=== PATIENT | female | born 1955 | race African-American/Black ===

== ENCOUNTER 2020-01-12 08:34 | Inpatient (IN) | payer OTHER ==
[~2020-01-12] VITALS: Ht 160 cm; Wt 55.0 kg
[~2020-01-12 08:34] MED LIST: INSLAN SQ; TRAZ-251 PO
[2020-01-12] MEDS ORDERED: ETOMIDATE 2MG/ML 10ML VIAL IV ONE (09:00)
[2020-01-12] MEDS ORDERED: SUCCINYLCHOLINE CHLORIDE 200MG/10ML IV ONE (09:00)
[2020-01-12] MEDS ORDERED: VANCOMYCIN 1 G PREMIX 200 ML IV ONE (09:00)
[2020-01-12] MEDS ORDERED: PROPOFOL 10MG/ML 100ML 100 ML IV ONE (09:00)
[2020-01-12] MEDS ORDERED: PIPERACILLIN/TAZ 3.375G PREMIX 50 ML IV ONE (09:00)
[2020-01-12] MEDS ORDERED: SODIUM CHLORIDE 0.9% 1000ML BAG (SEPSIS BOLUS) IV ONE (09:00)
[2020-01-12] MEDS ORDERED: FENTANYL CITRATE/PF 50MCG/ML 2ML VIAL IV ONE (09:00)
[2020-01-12 09:23] LABS: HEMATOCRIT. 33.7 % (36.0-48.0); HEMOGLOBIN. 10.4 g/dL (12.0-16.0); MEAN CORPUSCULAR HEMOGLOBIN 27.3 pg (28.0-32.0); MEAN CORPUSCULAR VOLUME 88.6 fL (81.0-99.0); PLATELET 247 x1000/uL (130-400); RED BLOOD CELL COUNT 3.81 mill/uL (4.2-5.4); RED CELL DISTRIBUTION WIDTH 17.2 % (11.6-14.6)
[2020-01-12 09:28] LABS: CHLORIDE 108 mEq/L (98-107)
[2020-01-12 09:37] LABS: CREATINE KINASE 256 IU/L (26-192)
[2020-01-12] MEDS ORDERED: NOREPINEPHRINE 4MG/250ML PMX 250 ML IV STA (09:37)
[2020-01-12 09:38] LABS: BG BASE EXCESS -0.8 mmol/L (-2.0-2.0); BG CARBOXYHEMOGLOBIN 0.2 % (0.5-1.5); BG DEOXYHEMOGLOBIN 0.7 % (0.0-5.0); BG FRACTION INSPIRED OXYGEN 100; BG HCO3 ACT 24.2 mmol/L (22.0-26.0); BG METHEMOGLOBIN 0.1 % (0.0-1.5); BG OXYGEN SATURATION 99.3 % (92.0-98.5); BG PCO2 41.2 mmHg (35.0-45.0); BG PH 7.386 (7.350-7.450); BG PO2 577.8 mmHg (75.0-100.0); BG SAMPLE SITE LEFT FEMORAL; BG TIDAL VOLUME(mL) 500 mL; BG TOTAL HEMOGLOBIN 10.4 g/dL (12.0-18.0); BG VENT MODE VENT - A/C; BG VENT RATE 16 set
[2020-01-12 09:40] LABS: D-DIMER 7.48 mg/L FEU (<0.50); INR 1.2; PROTHROMBIN TIME 12.6 sec (9.6-11.0)
[2020-01-12 09:47] LABS: PLATELET ESTIMATE NORMAL
[2020-01-12] MEDS ORDERED: FUROSEMIDE 100MG/10ML VIAL IV STA (09:49)
[2020-01-12] MEDS ORDERED: INSULIN REGULAR (HUMULIN R) 300UNITS/3ML IV ONE (10:00)
[2020-01-12] MEDS ORDERED: DEXTROSE 50% WATER 50ML SYRINGE IV ONE (10:00)
[2020-01-12] MEDS ORDERED: SODIUM BICARBONATE 8.4% 1 MEQ/ML 50ML SYR IV ONE (10:00)
[2020-01-12] MEDS ORDERED: ALBUTEROL (0.083%) 2.5MG/3ML NEB HHN ONE (10:00)
[2020-01-12] MEDS ORDERED: CALCIUM CHLORIDE 1GM/10ML SYR IV ONE (10:00)
[2020-01-12 12:35] LABS: CLARITY URINE CLOUDY (CLEAR); COLOR URINE DK YELLOW (YELLOW); KETONES URINE NEGATIVE (NEGATIVE); LEUKOCYTE ESTERASE URINE TRACE (NEGATIVE); NITRITE URINE NEGATIVE (NEGATIVE); OCCULT BLOOD URINE NEGATIVE (NEGATIVE); PH URINE 7.5 (4.5-8.0); PROTEIN URINE 2+ (NEGATIVE); SPECIFIC GRAVITY URINE 1.017 (1.005-1.030); UROBILINOGEN URINE 0.2 E.U./dL (0.2-1.0)
[2020-01-12] MEDS ORDERED: NOREPINEPHRINE 4MG/250ML PMX 250 ML IV ONE ×4 (12:54→20:39)
[2020-01-12] MEDS ORDERED: ACETAMINOPHEN 650MG/20.3ML UDC GT PRN ×2 (13:30)
[2020-01-12] MEDS ORDERED: ONDANSETRON HCL 4MG/2ML INJ IV PRN (13:30)
[2020-01-12] MEDS ORDERED: INSULIN REGULAR (DRIP) 100 UNITS in SODIUM CHLORIDE 0.9% 100 ML IV SCH (13:30)
[2020-01-12] MEDS ORDERED: PIPERACILLIN/TAZOBACTAM 3.375 G/VIAL IV SCH (14:00)
[2020-01-12 14:18] LABS: CHLORIDE 121 mEq/L (98-107)
[2020-01-12 14:25] LABS: LDL CHOLESTEROL 52 mg/dL (5-100)
[2020-01-12 14:27] LABS: HDL CHOLESTEROL 46 mg/dL (40-59)
[2020-01-12] MEDS ORDERED: PHENYLEPHRINE 10 MG in DEXT 5% WATER 249 ML IV PRN ×4 (14:30)
[2020-01-12 15:44] LABS: BETA HYDROXYBUTYRATE 0.3 mMol/L (0.0-0.3)
[2020-01-12 16:08] LABS: VITAMIN B12 SERUM 1974 pg/mL (211-911)
[2020-01-12 16:18] LABS: FOLIC ACID (FOLATE) SERUM > 20.00 ng/mL (>5.38)
[2020-01-12] MEDS: PANTOPRAZOLE SODIUM 40 MG/VIAL IV SCH (16:30)
[2020-01-12] MEDS ORDERED: DEXTROSE 50% WATER 50ML SYRINGE IV PRN ×2 (16:30)
[2020-01-12] MEDS: BLOOD SUGAR DIAGNOSTIC STRIP TEST SCH ×4 (17:10→22:00)
[2020-01-12] MEDS: INSULIN REGULAR (DRIP) 100 UNITS in SODIUM CHLORIDE 0.9% 99 ML IV SCH (18:50)
[2020-01-12] MEDS ORDERED: PROPOFOL 10MG/ML 100ML 100 ML IV PRN (19:15)
[2020-01-12] MEDS ORDERED: FENTANYL CITRATE/PF 1,000 MCG in SODIUM CHLORIDE 0.9% 80 ML IV PRN (19:15)
[2020-01-12] MEDS ORDERED: IPRATROPIUM/ALBUTEROL 0.5-3(2.5)MG/3ML NEB HHN PRN (19:30)
[2020-01-12] MEDS ORDERED: FLUCONAZOLE 200 MG/100ML BAG 100 ML IV SCH (20:00)
[2020-01-12] MEDS ORDERED: NOREPINEPHRINE 4 MG in DEXTROSE 5% WATER 250 ML IV PRN (21:00)
[2020-01-12] MEDS ORDERED: LINEZOLID 600 MG PREMIX 300 ML IV SCH (23:00)
[2020-01-12] MEDS: PIPERACILLIN/TAZOBACTAM 2.25 G in DEXTROSE 5% WATER 50 ML IV SCH (23:20)
[2020-01-13] VITALS (60 sets, daily range): BP systolic 51–152; BP diastolic 31–104
[2020-01-13] MEDS ORDERED: IPRATROPIUM/ALBUTEROL 0.5-3(2.5)MG/3ML NEB HHN SCH
[2020-01-13] MEDS: BLOOD SUGAR DIAGNOSTIC STRIP TEST SCH ×10 (01:00→10:29)
[2020-01-13] MEDS ORDERED: INSU3INS2 SQ (02:32)
[2020-01-13] MEDS ORDERED: TRAZ-251 MT (02:32)
[2020-01-13] MEDS ORDERED: NITR0.4T49 SL (02:32)
[2020-01-13] MEDS ORDERED: COR3 MT (02:32)
[2020-01-13] MEDS ORDERED: GABA-531 PO (02:32)
[2020-01-13] MEDS ORDERED: SITA25TA3 MT (02:32)
[2020-01-13] MEDS ORDERED: ATOR80TA MT (02:32)
[2020-01-13] MEDS ORDERED: LISI40TA4 MT (02:32)
[2020-01-13] MEDS ORDERED: ASPI-1158 MT (02:32)
[2020-01-13] MEDS ORDERED: PANT40TA4 MT (02:32)
[2020-01-13] MEDS ORDERED: DULA1.5P SQ (02:32)
[2020-01-13] MEDS: PIPERACILLIN/TAZOBACTAM 2.25 G in DEXTROSE 5% WATER 50 ML IV SCH (02:42)
[2020-01-13] MEDS: INSULIN REGULAR (DRIP) 100 UNITS in SODIUM CHLORIDE 0.9% 99 ML IV SCH (02:44)
[2020-01-13] MEDS ORDERED: NON FORMULARY PATIENT HOME MED XX SCH (02:45)
[2020-01-13] MEDS: PHENYLEPHRINE 40 MG in DEXT 5% WATER 246 ML IV PRN ×2 (02:45→09:06)
[2020-01-13] MEDS ORDERED: DEXT 5%/0.2% NACL 1,000 ML IV SCH (03:00)
[2020-01-13 05:50] LABS: CHLORIDE 116 mEq/L (98-107)
[2020-01-13 05:53] LABS: HEMATOCRIT. 26.6 % (36.0-48.0); HEMOGLOBIN. 8.2 g/dL (12.0-16.0); MEAN CORPUSCULAR HEMOGLOBIN 27.2 pg (28.0-32.0); MEAN CORPUSCULAR VOLUME 87.7 fL (81.0-99.0); MEAN PLATELET VOLUME 9.9 fl (7.4-10.4); PLATELET 105 x1000/uL (130-400); RED BLOOD CELL COUNT 3.03 mill/uL (4.2-5.4)
[2020-01-13 06:45] LABS: PHOSPHORUS 6.7 mg/dL (2.5-4.9)
[2020-01-13 08:40] LABS: BG BASE EXCESS -5.4 mmol/L (-2.0-2.0); BG CARBOXYHEMOGLOBIN 0.3 % (0.5-1.5); BG FRACTION INSPIRED OXYGEN 100; BG HCO3 ACT 18.7 mmol/L (22.0-26.0); BG METHEMOGLOBIN 0.4 % (0.0-1.5); BG OXYHEMOGLOBIN 94.3 % (94.0-97.0); BG PCO2 30.9 mmHg (35.0-45.0); BG PH 7.399 (7.350-7.450); BG PO2 86.1 mmHg (75.0-100.0); BG SAMPLE SITE LEFT BRACHIAL; BG TIDAL VOLUME(mL) 500 mL; BG TOTAL HEMOGLOBIN 9.3 g/dL (12.0-18.0); BG VENT MODE VENT - A/C; BG VENT RATE 16 set
[2020-01-13] MEDS ORDERED: DEXTROSE 50% WATER 50ML SYRINGE IV PRN (08:45)
[2020-01-13] MEDS ORDERED: SODIUM BICARBONATE 8.4% MEQ/ML 50ML VIAL IV ONE (08:54)
[2020-01-13] MEDS ORDERED: CALCIUM CHLORIDE 1GM/10ML SYR IV ONE (08:54)
[2020-01-13] MEDS ORDERED: ETOMIDATE 2MG/ML 10ML VIAL IV ONE (08:54)
[2020-01-13] MEDS ORDERED: EPINEPHRINE 0.1MG/ML (1:10,000) 10ML SYR ONE (08:54)
[2020-01-13] MEDS ORDERED: DEXTROSE 50% WATER 50ML VIAL IV ONE (08:54)
[2020-01-13] MEDS ORDERED: SUCCINYLCHOLINE CHLORIDE 200MG/10ML IV ONE (08:54)
[2020-01-13] MEDS: PANTOPRAZOLE SODIUM 40 MG/VIAL IV SCH (09:03)
[2020-01-13] MEDS ORDERED: LINEZOLID 600 MG PREMIX 300 ML IV SCH (10:00)
[2020-01-13] MEDS ORDERED: ATROPINE SULFATE 1% OPHTH 2ML SL PRN (11:15)
[2020-01-13] MEDS ORDERED: SODIUM HYPOCHLORITE 0.125% 473ML SOLUTION TOP SCH (11:30)
[2020-01-13 11:34] LABS: PLATELET ESTIMATE DECREASED
[2020-01-13] MEDS ORDERED: MORPHINE SULFATE 250 MG in DEXT 5% WATER 250 ML IV PRN (11:45)
[2020-01-13] MEDS ORDERED: MORPHINE SULFATE 100 MG in DEXT 5% WATER 90 ML IV PRN (11:45)
[2020-01-13] MEDS ORDERED: BLOOD SUGAR DIAGNOSTIC STRIP TEST SCH ×2 (13:00→17:50)
[2020-01-13] MEDS ORDERED: INSULIN LISPRO 100 UNITS/ML SUBCUT SCH (13:20)
[2020-01-13] MEDS ORDERED: FLUCONAZOLE 100MG/50ML in BAG IV SCH (14:00)
[2020-01-15 10:06] LABS: % CD 3 POS. LYMPHOCYTES 47.4 % (57.5-86.2); % CD 4 POS. LYMPHOCYTES 29.7 % (30.8-58.5); % CD 8 POS. LYMPH 16.9 % (12.0-35.5); ABSOLUTE BASOPHILS 0.3 x10E3/uL (0.0-0.2); ABSOLUTE CD 3 995 /uL (622-2402); ABSOLUTE CD 4 HELPER 624 /uL (359-1519); ABSOLUTE CD 8 SUPPRESSOR 355 /uL (109-897); ABSOLUTE EOSINOPHILS 0.8 x10E3/uL (0.0-0.4); ABSOLUTE LYMPHOCYTES 2.1 x10E3/uL (0.7-3.1); ABSOLUTE MONOCYTES 1.1 x10E3/uL (0.1-0.9); ABSOLUTE NEUTROPHILS 11.8 x10E3/uL (1.4-7.0); BASOPHILS 2 % (Not Estab.); CD4/CD8 RATIO 1.76 (0.92-3.72); HEMATOCRIT 26.9 % (34.0-46.6); HEMATOLOGY COMMENT Note: (.); LYMPHOCYTES 13 % (Not Estab.); MEAN CORPUSCULAR HEMOGLOBIN 27.1 pg (26.6-33.0); MEAN CORPUSCULAR HGB CONC. 29.7 g/dL (31.5-35.7); MEAN CORPUSCULAR VOLUME 91 fL (79-97); MONOCYTES 7 % (Not Estab.); NEUTROPHILS 73 % (Not Estab.); NUCLEATED RBC 1 % (0 - 0); PLATELETS 113 x10E3/uL (150-450); RBC 2.95 x10E6/uL (3.77-5.28); RED CELL DISTRIBUTION WIDTH 16.9 % (11.7-15.4); WBC 16.1 x10E3/uL (3.4-10.8)
== END 2020-01-13 17:50 | disposition expired | DRG 720 ==
LOC: ER 08:34 → CVICU 11:00 → EDBEDREQSVC 11:08 → EDBEDREQ 11:08 → CANRESERV 20:42 → ENRESERV 20:42
PROVIDERS: ADMIT Internal Medicine; ATTEND Internal Medicine
PROC: 0BH17EZ Insertion of Endotracheal Airway into Trachea, Via Natural or Artificial Opening (ICD-10-PCS; principal; 2020-01-12)
PROC: 5A1945Z Respiratory Ventilation, 24-96 Consecutive Hours (ICD-10-PCS; 2020-01-12)
PROC: 5A12012 Performance of Cardiac Output, Single, Manual (ICD-10-PCS; 2020-01-12)
PROC: 05HY33Z Insertion of Infusion Device into Upper Vein, Percutaneous Approach (ICD-10-PCS; 2020-01-12)
PROC: B54MZZA Ultrasonography of Right Upper Extremity Veins, Guidance (ICD-10-PCS; 2020-01-12)
DX: A41.9 Sepsis, unspecified organism (principal); B37.49 Other urogenital candidiasis; D64.9 Anemia, unspecified; D68.59 Other primary thrombophilia; D69.6 Thrombocytopenia, unspecified; D72.810 Lymphocytopenia; E11.65 Type 2 diabetes mellitus with hyperglycemia; E43 Unspecified severe protein-calorie malnutrition; E87.0 Hyperosmolality and hypernatremia; E87.2 Acidosis; E87.5 Hyperkalemia; F03.90 Unspecified dementia, unspecified severity, without behavioral disturbance, psychotic disturbance, mood disturbance, and anxiety; G93.40 Encephalopathy, unspecified; I25.2 Old myocardial infarction; N18.9 Chronic kidney disease, unspecified; I12.9 Hypertensive chronic kidney disease with stage 1 through stage 4 chronic kidney disease, or unspecified chronic kidney disease; E11.22 Type 2 diabetes mellitus with diabetic chronic kidney disease; Z66 Do not resuscitate; Z20.828 Contact with and (suspected) exposure to other viral communicable diseases; I45.10 Unspecified right bundle-branch block; I46.9 Cardiac arrest, cause unspecified; I82.621 Acute embolism and thrombosis of deep veins of right upper extremity; J69.0 Pneumonitis due to inhalation of food and vomit; J96.01 Acute respiratory failure with hypoxia; N17.0 Acute kidney failure with tubular necrosis; I69.351 Hemiplegia and hemiparesis following cerebral infarction affecting right dominant side; I69.391 Dysphagia following cerebral infarction; R65.21 Severe sepsis with septic shock; Z79.4 Long term (current) use of insulin; Z93.1 Gastrostomy status; Z68.21 Body mass index [BMI] 21.0-21.9, adult
CPT/HCPCS: 36415; 36600; 71045; 80048; 80053; 80061; 80202; 81003; 82010; 82140; 82375; 82533; 82550; 82607; 82728; 82746; 82805; 82962; 83036; 83540; 83550; 83605; 83615; 83735; 83930; 84100; 84145; 84484; 85025; 85379; 85384; 86140; 86359; 86360; 86850; 86900; 87070; 87077; 87186; 87493; 87536; 92950; 93005; 93971; 94002; 94003; 94640; 96365; 99291; C9113; J0330; J1450; J1815; J1940; J2020; J2274; J2370; J2543; J2704; J3010; J3370; J3490; J7030; J7050; J7060; C9803-CS; U0003-CS